=== PATIENT | male | born 1985 | race Caucasian/White ===

== ENCOUNTER 2017-03-22 05:28 | Day surgery (SDC) | payer BC ==
[2017-03-20 13:36] VITALS: BMI 26.5
[2017-03-22 08:49] VITALS: TEMP 98.1
[2017-03-22] MEDS ORDERED: PROPOFOL 20 ML ONE ×2 (09:31)
[2017-03-22] MEDS ORDERED: PHENYLEPHRINE HCL 10 MG/1 ML SINGLE DOSE VIAL ONE ×2 (09:31→09:32)
[2017-03-22] MEDS ORDERED: SUCCINYLCHOLINE CHLORIDE 200 MG/10 ML VIAL ONE (09:31)
[2017-03-22] MEDS ORDERED: ePHEDrine SULFATE 50 MG/1 ML AMPULE ONE (09:31)
[2017-03-22] MEDS ORDERED: methylPREDNISolone ACET (DEPO) 80 MG/1 ML VIAL ONE (09:33)
[2017-03-22] MEDS ORDERED: BUPIVACAINE HCL/PF 0.25% (2.5MG/ML) 10 ML VIAL ONE (09:33)
[2017-03-22] MEDS ORDERED: MIDAZOLAM HCL 2 MG/2 ML SINGLE DOSE VIAL ONE ×5 (09:34→10:15)
[2017-03-22] MEDS ORDERED: methylPREDNISolone ACET (DEPO) 80 MG/1 ML VIAL IJ ONE (10:21)
[2017-03-22] MEDS ORDERED: BUPIVACAINE HCL/PF 0.25% (2.5MG/ML) 10 ML VIAL IJ ONE (10:21)
[2017-03-22] MEDS ORDERED: LIDOCAINE HCL 1%, 10 MG/ML (20ML VIAL) IJ ONE (10:21)
--- NOTE | 2017-03-22 10:32 | OP ---
Operative Note - Note: Operative Date: 03/22/17 Pre-Operative Diagnosis: L L5-S1 HNP/radiculopathy Operation: Left L5-S1 epidural steroid injection; fluroscopy Post-Operative Diagnosis: Same as Pre-op Surgeon: Barry Cage Anesthesiologist/CORPORATE TRUST OFFICER: Checo Swartz Anesthesia: MAC
[2017-03-22] MEDS ORDERED: oxyCODONE HCL 5 MG TABLET PO ONE (10:34)
[2017-03-22 12:43] VITALS: BP 130/78; PULSE 88
--- NOTE | 2017-03-23 10:55 | OP ---
DATE OF OPERATION: 03/22/2017 PREOPERATIVE DIAGNOSIS: Central and left-sided L4-5 paracentral disk protrusion with left L5-S1 radiculopathy. POSTOPERATIVE DIAGNOSIS: Central and left-sided L4-5 paracentral disk protrusion with left L5-S1 radiculopathy. ATTENDING SURGEON: Barry Menchaca MD PROCEDURE: 1. Left L5-S1 epidural steroid injection. 2. Intraoperative fluoroscopy. ANESTHESIA: Local with IV sedation. ANESTHESIOLOGIST: Checo Swartz MD ESTIMATED BLOOD LOSS: Minimal. INDICATION: The patient is a 32-year-old male with back pain and lumbar radiculopathy. Because of intractable symptoms and failed conservative treatment, he is here for first epidural steroid injection. The risks of the procedure include, but are not limited to, bleeding, infection, spinal headache, and neurological injury. The patient understands the indication for the procedure, procedure in detail, risks and benefits, and alternatives for treatment of his lumbar condition and wished to proceed. No guarantees given for a favorable outcome. PROCEDURE IN DETAIL: After the patient was taken to the operating room, he was placed in prone position with pillow under his hips. Lumbar region was cleaned with alcohol and cleaned with Betadine. A skin wheal was raised using 5 mL of 1% xylocaine. A 22-gauge spinal needle was inserted under AP and now fluoroscopic guidance in the form of a left-sided approach to L5-S1. Loss of resistance technique was utilized, and no CSF or blood backflow. Depo-Medrol 80 mg and 1 mL of 0.25% Marcaine were injected. The patient tolerated the procedure well and was returned back to supine position, moving bilateral extremities well. He did not complain of headache. He was quite uncomfortable during the initial portion of the procedure, but after IV sedation was given, he was much more comfortable. BARRY MENCHACA M.D. [facility]/[id number]
== END 2017-03-22 12:15 | disposition home or self-care (01) ==
LOC: JASU-SURG 05:28
PROVIDERS: ATTEND Neurological Surgery
PROC: 3E0R3CZ (ICD-10-PCS; 2017-03-22)
PROC: B01BYZZ Fluoroscopy of Spinal Cord using Other Contrast (ICD-10-PCS; 2017-03-22)
PROC: 3E0R33Z Introduction of Anti-inflammatory into Spinal Canal, Percutaneous Approach (ICD-10-PCS; principal; 2017-03-22 10:00)
DX: M51.26 Other intervertebral disc displacement, lumbar region (principal); M54.17 Radiculopathy, lumbosacral region
CPT/HCPCS: 76000-TC